=== PATIENT | female | born 1990 ===

== ENCOUNTER 2018-06-11 08:53 | Outpatient (CLI) | payer OTHER | END 2018-06-11 08:54 | disposition home or self-care (01) | LOC: C.LAB 08:53 | DX: Z34.80 Encounter for supervision of other normal pregnancy, unspecified trimester (principal) ==

== ENCOUNTER 2018-07-15 08:49 | Outpatient (CLI) | payer SELFPAY | END 2018-07-15 08:50 | disposition home or self-care (01) | LOC: C.LAB 08:49 | DX: Z34.80 Encounter for supervision of other normal pregnancy, unspecified trimester (principal) ==

== ENCOUNTER 2018-09-11 10:28 | Outpatient (CLI) | payer OTHER | END 2018-09-11 10:29 | disposition home or self-care (01) | LOC: C.LAB 10:28 ==